=== PATIENT | female | born 1985 | race Caucasian/White ===

== ENCOUNTER 2020-03-14 15:33 | Emergency (ER) | payer BC, SELFPAY ==
--- NOTE | ~2020-03-14 | CT_ITS ---
EXAMINATION: CT brain wo con INDICATION: Hallucinations COMPARISON: None TECHNIQUE: Standard unenhanced head CT. The dose-length product (DLP) was 605.33 mGy-cm. The mA was a djusted according to patient size. Iterative reconstruction technique was employed. FINDINGS: There is no intracranial hemorrhage, acute infarction, or abnormal mass lesion. The ventric les are normal. There is no abnormal mass effect or midline shift. The munguia-white matter differentiat ion is normal. The basal cisterns are patent. The orbits are normal. The paranasal sinuses, mastoids and calvarium are normal. IMPRESSION: 1. No acute intracranial abnormality. Reviewed, dictated and finalized at location A.
--- NOTE | ~2020-03-14 | XR_ITS ---
EXAMINATION: XR chest 1V DATE: 03/14/2020 16:58 INDICATION: Stupor and intoxication TECHNIQUE: AP view of the chest is obtained. COMPARISON: None available FINDINGS: The lungs are free of acute opacities. There is no pleural effusion or pneumothorax. The ca rdiomediastinal silhouette is normal. The visualized bones and soft tissues are unremarkable. IMPRESSION: 1. No acute cardiopulmonary abnormality. Reviewed, dictated and finalized at location A.
[2020-03-14 15:36] VITALS: BP 155/105; PULSE 107; RESP 24; TEMP 36.8; O2SAT 97
--- NOTE | 2020-03-14 15:59 | ECG_ITS ---
Measurements Intervals [place] Rate: 82 P: 59 TX: 145 QRS: -11 QRSD: 94 T: 54 QT: 348 QTc: 408 Interpretive Statements SINUS RHYTHM NORMAL ECG Electronically Signed On 03-14-2020 17:24:43 CDT by Sreekanth Juarez D.O.
--- NOTE | 2020-03-14 15:59 | ED.GENADULT ---
HPI - General Adult General Chief complaint: Psychiatric Symptoms Stated complaint: SI Time Seen by Provider: 03/14/20 15:58 Source: patient and family Mode of arrival: ambulatory Limitations: intoxication History of Present Illness HPI narrative: Patient is a 35-year-old female who presents for evaluation of agitation and hallucinations. Patient states that she has had 8 days of heavy methamphetamine use. She denies other drug use or alcohol use. Patient states that she typically follows with a psychiatrist in [place], has not been taking any of her medications. When asked what those medications are, she states she is unsure. Patient is very tangential with nonsensical speech at times. She is hallucinating that federal officers are trying to arrest her. At times she is tearful. Patient is writhing on the bed, very difficult to get any history. Related Data Home Medications Medication Instructions Recorded Confirmed baclofen 5 mg PO BID 03/14/20 gabapentin 300 mg PO TID 03/14/20 hydroxyzine HCl 25 mg PO QID 03/14/20 topiramate [Topamax] 50 mg PO BID 03/14/20 Allergies Allergy/AdvReac Type Severity Reaction Status Date / Time No Known Allergies Allergy Verified 03/14/20 15:43 Review of Systems Review of Systems: Narrative: Unable to obtain secondary to medical condition PMFSH Past Medical History Medical History (Updated 03/14/20 @ 18:14 by Lorraine Ansari MD) Methamphetamine abuse Substance abuse Surgical History Surgical History (Updated 03/14/20 @ 16:57 by Lorraine Ansari MD) No pertinent past surgical history Social History Social History (Updated 03/14/20 @ 16:58 by Lorraine Ansari MD) Smoking status: Current some day smoker Alcohol intake: unknown Substance use: current Substance use type: amphetamines Gender identity (if verbalized by the patient): Female Exam Narrative: Exam Narrative: GENERAL: Awake, agitated, tangential speech, tearful HEAD: Normocephalic, atraumatic. EYES: PERRLA and EOMI. ENT: Nares clear, no rhinorrhea or epistaxis. Mucous membranes moist. NECK: Supple. CHEST: Tachypneic, no respiratory distress, breathing even and non labored HEART tachycardic rate, sinus rhythm ABDOMEN:Non distended, non tender EXTREMITIES: Normal range of motion. No edema. SKIN: Warm, dry, no rash. NEURO:No focal deficits. Alert and oriented PSYCH: Suicidal, no plan, no known access to firearms per family, hallucinating with visual hallucinations, states she is also worried federal police are going to arrest her Course Vital Signs Vital signs: Vital Signs Temperature 36.8 C 03/14/20 15:36 Pulse Rate 107 H 03/14/20 15:36 Respiratory Rate 24 H 03/14/20 15:36 Blood Pressure 155/105 H 03/14/20 15:36 Pulse Oximetry 97 03/14/20 15:36 Temperature 36.8 C 03/14/20 15:36 Pulse Rate 82 03/14/20 18:21 Respiratory Rate 20 03/14/20 18:21 Blood Pressure 155/105 H 03/14/20 15:36 Pulse Oximetry 97 03/14/20 18:21 Medical Decision Making MDM Narrative Medical decision making narrative: Patient with polysubstance abuse, here with agitation. Patient was given IV Ativan with improvement in her agitation. Laboratory results notable for hypokalemia. Will replenish this orally and through the IV, we will recheck it later this evening to ensure it is normalizing. Once normal, crisis will be consulted to evaluate the patient. Her agitation is likely all secondary to substance abuse, we will have to assess her suicidal ideation when she is more sober. Patient signed out to oncoming physician who will dictate the ultimate care and disposition of this patient. Differential Diagnosis Differential Diagnosis: Polysubstance abuse, delirium, electrolyte derangement, dehydration Medical Records Medical records reviewed: Yes I reviewed the patient's medical records. Vital Signs Vital Signs: Vital Signs Temperature 36.8 C 03/14/20 15:36 Pulse Rate 107 H
[2020-03-14] MEDS: HALOPERIDOL LACTATE 5 MG/ML VIAL (16:04)
[2020-03-14] MEDS: SODIUM CHLORIDE 0.9% IV 1,000 ML 999 ML IV CONT ×2 (16:32→19:27)
[2020-03-14 17:22] LABS: Basophils Absolute Auto 0.1 K/mm3 (0.0-0.1); Basophils Percent Auto 0.7 % (0.2-1.2); Eosinophils Absolute Auto 0.2 K/mm3 (0-0.3); Eosinophils Percent Auto 1.2 % (0-4.4); Immature Granulocyte Absolute 0.06 K/mm3 (0.00-0.031); Immature Granulocyte Percent A 0.5 % (0-0.5); Lymphocytes Absolute Auto 2.58 K/mm3 (0.9-3.2); Mean Corpuscular HGB Conc 34.3 g/dl (32-36); Mean Corpuscular Hemoglobin 31.4 pg (26-34); Mean Corpuscular Volume 91.6 fl (80-100); Mean Platelet Volume 10.4 fl (7.4-10.4); Monocytes Percent Auto 7.4 % (2.6-8.5); Neutrophils Absolute Auto 9.1 K/mm3 (1.3-6.7); Neutrophils Percent Auto 70.2 % (45.5-73.1); Platelet Count Result 265 k/mm3 (150-375); Red Blood Count 3.82 M/mm3 (4.2-5.4); Red Cell Distribution Width 13.3 % (11.5-14.5); White Blood Count 12.9 K/mm3 (4.5-10.0)
[2020-03-14 17:28] LABS: Add Urine Microscopic? YES; Appearance Urine Clear (Clear); Bacteria Urine Trace /hpf; Bilirubin Urine Negative (Negative); Blood Urine 1+ (Negative); Color Urine Amber (Yellow); Glucose Urine UA Negative (Negative); Ketones Urine 1+ mg/dL (Negative); Leukocyte Esterase Ur Trace LEU/UL (Negative); Mucus Urine Rare /lpf; Nitrate Urine Positive (Negative); Protein Urine 2+ mg/dL (Negative); Squamous Epithelial Cell Urine Few /hpf (Few)
[2020-03-14 17:29] LABS: Specific Grav Ur 1.032 (1.001-1.035)
[2020-03-14 17:41] LABS: Alanine Aminotransferase 47 U/L (4-35); Albumin Level 3.9 g/dL (3.5-5.1); Alkaline Phosphatase 65 U/L (38-126); Aspartate Amino Transferase 85 U/L (14-36); Blood Urea Nitrogen 16 mg/dL (7-17); Calcium 8.6 mg/dL (8.4-10.2); Carbon Dioxide 22 mmol/L (22-30); Chloride 105 mmol/L (98-107); Estimated CRCL calculation 86 ml/min; Estimated Glomerular Filt Rate > 60; Glucose 88 mg/dL (65-105); Potassium 2.2 mmol/L (3.4-5.0); Sodium 136 mmol/L (137-145)
[2020-03-14 17:42] LABS: Ethanol 17 mg/dL (<10)
[2020-03-14 17:43] LABS: Acetaminophen < 10 ug/mL (10-30); Salicylate < 1.0 mg/dL (2-20)
[2020-03-14 17:45] LABS: Barbiturate Screen Urine Negative (Negative); Benzodiazepines Screen Urine Positive (Negative)
[2020-03-14 17:48] LABS: Cannabinoid Screen Urine Negative (Negative); Cocaine Screen Urine Negative (Negative); Methadone Screen Urine Negative (Negative); Opiate Screen Urine Negative (Negative); Phencyclidine Screen Urine Negative (Negative)
[2020-03-14 18:02] LABS: Amphetamine Screen Urine Positive (Negative)
[2020-03-14 18:04] LABS: Thyroid Stimulating Hormone 0.148 uIU/mL (0.465-4.680)
[2020-03-14 18:21] VITALS: PULSE 82; RESP 20; O2SAT 97
[2020-03-14 19:40] VITALS: BP 102/62; PULSE 84; RESP 15; O2SAT 96
--- NOTE | 2020-03-14 20:14 | PC.NURSE ---
Received report from NICOLETTE March. Pt was moved from rm 6 to Rm 14. Pt asleep, no s/s of distress. 1:1 staff sitter at bedside.
[2020-03-14 21:25] VITALS: BP 132/80; PULSE 80; RESP 20; O2SAT 98
--- NOTE | 2020-03-14 21:25 | PC.NURSE ---
Pt asleep, no ss of distress.
--- NOTE | 2020-03-14 23:06 | PC.NURSE ---
report given to NICOLETTE Villarreal
--- NOTE | 2020-03-14 23:15 | PC.NURSE ---
Care assumed for this patient, patient resting on stretcher. Sitter at bedside.
--- NOTE | 2020-03-14 23:55 | PC.NURSE ---
Patient noted to be pulling at IV line, urinating on bed and becoming agitated. Patient rocking back and forth, swing arms around and blood noted to be coming from IV site. Patient assisted to commode, bed cleaned, patient provided with clean clothes and linens. Patient given 2mg IVP ativan per verbal order from Dr Prasad. Patient now resting on stretcher, sitter remains at bedside, warm blankets given.
[2020-03-15 00:14] VITALS: BP 94/56; PULSE 76; RESP 18; O2SAT 96
--- NOTE | 2020-03-15 05:41 | PC.NURSE ---
Patient becoming agitated, thrashing around in the bed, pulling at IV, and making noises. Patient given 2mg IVP ativan per verbal order from Dr Prasad. Patient's Potassium level redrawn. Patient now resting on stretcher. Sitter at bedside.
[2020-03-15 05:47] VITALS: BP 103/66; PULSE 76; RESP 16; O2SAT 98
--- NOTE | 2020-03-15 06:00 | PC.NURSE ---
Patient not tolerating wires from vital sings monitor, continuously pulling and getting agitated with wires. Will spot check vitals.
[2020-03-15 06:05] LABS: Potassium 2.8 mmol/L (3.4-5.0)
[2020-03-15] MEDS: SODIUM CHLORIDE 0.9% IV 1,000 ML 50 ML (06:54)
--- NOTE | 2020-03-15 06:55 | PC.NURSE ---
Patient's left wrist placed on arm board with vadim arriaga. Due to movement stopping IV.
[2020-03-15 07:33] VITALS: BP 107/68; PULSE 84; RESP 15; O2SAT 100
--- NOTE | 2020-03-15 07:36 | PC.NURSE ---
Breakfast tray ordered for patient at this time.
[2020-03-15] MEDS: NITROFURANTOIN MONOHYD MACROCR 100 MG CAP PO (08:26)
[2020-03-15 13:39] VITALS: BP 110/71; PULSE 75; RESP 16; O2SAT 99
[2020-03-15 17:45] VITALS: BP 103/75; PULSE 89; O2SAT 99
--- NOTE | 2020-03-15 18:24 | PC.NURSE ---
Patient waiting on family member to come pick her up for the ED at this time.
== END 2020-03-15 19:04 | disposition home or self-care (01) ==
PROVIDERS: Emergency Medicine; Emergency Provider General Practice
DX: F15.10 Other stimulant abuse, uncomplicated (principal); R44.3 Hallucinations, unspecified; R45.1 Restlessness and agitation; E87.6 Hypokalemia; F17.200 Nicotine dependence, unspecified, uncomplicated
CPT/HCPCS: 36415; 51701; 70450; 71045; 80053; 80307; 81001; 81025; 84132; 84443; 85025; 87077; 87086; 87088; 87186; 93005; 96361; 96365; 96366; 96372; 99284; A9270; J1630; J2060; J3480; J7030